=== PATIENT | female | born 1995 | race American Indian/Alaskan Native ===

== ENCOUNTER 2021-05-25 08:31 | Outpatient (CLI) | payer OTHER ==
[2021-05-27 15:20] LABS: CD4/CD8 Ratio 0.4 (0.86-5.00)
== END 2021-05-25 08:32 | disposition home or self-care (01) ==
LOC: LAB 08:31
PROVIDERS: ATTEND Internal Medicine
DX: Z02.1 Encounter for pre-employment examination (principal)
CPT/HCPCS: 36415; 82024